=== PATIENT | female | born 1960 | race Caucasian/White ===

== ENCOUNTER → 2022-04-09 09:01 | Outpatient (CLI) | payer BC, SELFPAY ==
--- NOTE | ~2022-04-09 | CT_ITS ---
EXAMINATION: CT abdomen pelvis wo con DATE: 04/09/2022 09:19 INDICATION: Incisional hernia without obstruction. TECHNIQUE: Computed tomography (CT) of the abdomen and pelvis was performed without intravenous contr ast. Automated exposure control and iterative reconstruction technique were employed. The dose-length product was 1007.39 mGy-cm. COMPARISON: None. FINDINGS: The visualized portions of the lung bases demonstrate peripheral septal thickening, worst i n the paraspinal lower lobes. There are greater than 10 nodules in the lungs measuring up to 6 mm, li margarita benign. No bronchiectasis or honeycombing. The heart size is normal. No pericardial effusion. Ca lcified left hilar lymph nodes are consistent with old granulomatous disease. Calcifications in the l iver and spleen are consistent with old granulomatous disease. There is diffuse hepatic steatosis. Th ere are changes of cholecystectomy. The pancreas, adrenal glands, and kidneys are normal. There is no urolithiasis. There are no dilated loops of bowel. There are no pathologically enlarged lymph nodes. There is no free intraperitoneal fluid. There is a supraumbilical ventral hernia containing fat. The re is severe lumbar spondylosis. IMPRESSION: 1. Supraumbilical ventral hernia containing fat. Reviewed, dictated and finalized at location A.
== END ==
PROVIDERS: PCP Nurse Practitioner Family; Visit Provider Surgery
DX: K43.9 Ventral hernia without obstruction or gangrene (principal)
CPT/HCPCS: 74176

== ENCOUNTER 2023-07-06 15:15 | Emergency (ER) | payer OTHER, SELFPAY ==
--- NOTE | 2023-07-06 15:28 | ED.GENADULT ---
HPI - General Adult General Chief complaint: Eye Problems Stated complaint: foreign object rt eye Time Seen by Provider: 07/06/23 15:28 Source: patient Mode of arrival: ambulatory Limitations: no limitations History of Present Illness HPI narrative: 63-year-old female patient presents to [facility] with complaints of foreign body to the right eye. Patient states she went to go and take her contact out last night states she felt like she could not get her contact out. Patient states she normally pinches it and pull that out but states she felt like she was not able to get out and spent about 20 minutes trying to get it out continuing to mess with the eye. Denies any vision changes at this time. Denies any discharge from the eye. Related Data Home Medications Medication Instructions Recorded Confirmed aspirin 81 mg capsule 81 mg PO DAILY 03/21/22 07/06/23 bupropion HCl 300 mg 24 hr tablet, 300 mg PO QAM 03/21/22 07/06/23 extended release gabapentin 300 mg capsule 300 mg PO DAILY 03/21/22 07/06/23 levothyroxine 25 mcg capsule 25 mcg PO DAILY 03/21/22 07/06/23 magnesium oxide 500 mg capsule 500 mg PO DAILY 03/21/22 07/06/23 metformin 1,000 mg tablet 1,000 mg PO DAILY 03/21/22 07/06/23 rosuvastatin 5 mg tablet 5 mg PO DAILY 03/21/22 07/06/23 hydrochlorothiazide 25 mg tablet 25 mg PO DAILY 07/06/23 07/06/23 lisinopril 20 mg tablet 10 mg PO DAILY 07/06/23 07/06/23 pantoprazole 40 mg tablet,delayed 40 mg PO DAILY 07/06/23 07/06/23 release tirzepatide 10 mg/0.5 mL 10 mg subcut WEEKLY 07/06/23 07/06/23 subcutaneous pen injector (Mounjaro) Allergies Allergy/AdvReac Type Severity Reaction Status Date / Time Sulfa (Sulfonamide Allergy Unknown Unknown Verified 07/06/23 15:42 Antibiotics) Review of Systems Review of Systems: CONSTITUTIONAL: Denies fever, chills, or sweats. EYES: Denies visual changes, redness, or discharge. Positive right foreign body and ENT: Denies rhinorrhea, congestion, sore throat, or otalgia. CARDIOVASCULAR: Denies chest pain, palpitations, or edema. RESPIRATORY: Denies cough or dyspnea. GASTROINTESTINAL: Denies abdominal pain, nausea, vomiting, or diarrhea. GENITOURINARY: Denies dysuria or hematuria. SKIN: Denies rash or itching. MUSCULOSKELETAL: Denies back pain, joint pain, or myalgia. NEUROLOGIC: Denies headache, numbness, or weakness. PSYCHIATRIC: Denies anxiety or depression. 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 There is no relevant family history pertinent to the presenting complaint. Exam Narrative: GENERAL: Well-appearing, well-nourished, and in no acute distress. HEAD: Normocephalic, atraumatic. EYES: PERRLA and EOM intact without limitation or complaint of pain, no periorbital soft tissue swelling ,no erythema, warmth or tenderness noted, no obvious deformity. No crusting or swelling.no tearing or draining.No photophobia. No nystagmus No FB or lesion on lid eversion. Corneas grossly clear, no obvious FB or hyphens/hypopyon. No injection to sclera. Lids and lashes clear. no obvi
[2023-07-06 15:30] VITALS: BP 116/99; PULSE 93; RESP 18; TEMP 36.7; O2SAT 99
== END 2023-07-06 16:01 | disposition home or self-care (01) ==
PROVIDERS: Emergency Provider Nurse Practitioner Family; PCP Family Medicine
DX: S05.01XA Injury of conjunctiva and corneal abrasion without foreign body, right eye, initial encounter (principal); X58.XXXA Exposure to other specified factors, initial encounter; E11.9 Type 2 diabetes mellitus without complications; K21.9 Gastro-esophageal reflux disease without esophagitis; E78.00 Pure hypercholesterolemia, unspecified; I10 Essential (primary) hypertension; Z79.82 Long term (current) use of aspirin
CPT/HCPCS: 99213; A9270; G0463